=== PATIENT | female | born 1950 | race Caucasian/White ===

== ENCOUNTER 2021-04-12 04:51 | Day surgery (SDC) | payer MEDICARE ==
[~2021-04-12 04:51] MED LIST: ALBU90OI6 INH; ALBU90OI61; Crutch1 EACH MISC; DULO60 PO; GLIP5 PO; HYDACE5 PO; HYDCHL25 PO; LEVSOD100 PO; LEVSOD50; PARO20; PRAV20 PO; PROP10 PO; Percocet 5-3251 EACH PO; Prednisone20 MG PO; RXPROM25 PO; TOPI25; TRIA80TC TOP; WARF2 PO; WARF2.5; WARF3 PO; WARF5; WARF5 PO; [UNRECOGNIZED DRUG - REMARK]
[2021-04-12] MEDS ORDERED: WARF1 PO (18:36)
== END 2021-04-12 07:34 | disposition home or self-care (01) ==
LOC: ORSCSDS 04:51
DX: S82.62XA Displaced fracture of lateral malleolus of left fibula, initial encounter for closed fracture (principal); S82.52XA Displaced fracture of medial malleolus of left tibia, initial encounter for closed fracture; Z53.9 Procedure and treatment not carried out, unspecified reason

== ENCOUNTER 2021-04-12 17:43 | Inpatient (IN) | payer MEDICARE ==
[~2021-04-12] VITALS: Ht 165.1 cm; Wt 75.0 kg
[2021-04-12] MEDS ORDERED: WARF1 PO (18:36)
[2021-04-12 19:56] LABS: Bun/Creatinine Ratio 19.9 (12.0-20.0); Calcium, Blood 9.4 mg/dL (8.5-10.1); Creatinine, Blood 1.41 mg/dL (0.40-1.00); Potassium, Blood 3.3 mmol/L (3.5-5.5)
--- NOTE | 2021-04-13 04:29 | NUR ---
SHIFT SUMMARY PT HAS RESTED WELL T/O SHIFT. PT LEFT ANKLE IN IMMOBILIZER BOOT. PT DENIES PAIN TO ANKLE. NPO SINCE MIDNIGHT. USING BEDPAN TO VOID. USES CALL LIGHT APPROPRIATELY.
[2021-04-13 05:13] LABS: BASOPHILS ABSOLUTE AUTO 0.04 K/mm3 (0.00-0.23); BASOPHILS PERCENT AUTO 1 % (0-2); EOSINOPHILS ABSOLUTE AUTO 0.21 K/mm3 (0.00-0.68); EOSINOPHILS PERCENT AUTO 3 % (0-6); Hematocrit 37.3 % (33.0-51.0); Hemoglobin 12.6 g/dL (11.5-16.0); IMMATURE GRAN ABSOLUTE AUTO 0.03 K/mm3 (0.00-0.10); IMMATURE GRAN PERCENT AUTO 0 % (0-1); LYMPHOCYTES ABSOLUTE AUTO 2.47 K/mm3 (0.84-5.20); LYMPHOCYTES PERCENT AUTO 30 % (21-46); MONOCYTES ABSOLUTE AUTO 0.75 K/mm3 (0.16-1.47); MONOCYTES PERCENT AUTO 9 % (4-13); Mean Corpuscular HGB 31.6 pg (26.0-34.0); Mean Corpuscular HGB Conc 33.8 g/dL (31.5-36.5); Mean Corpuscular Volume 94 fL (80-100); Mean Platelet Volume 9.7 fL (9.1-12.4); NEUTROPHILS ABSOLUTE AUTO 4.76 K/mm3 (1.96-9.15); NEUTROPHILS PERCENT AUTO 58 % (41-73); Platelet Count 324 K/mm3 (150-400); RDW Coefficient Variation 13.3 % (11.7-14.2); RDW Standard Deviation 45.9 fL (35.1-46.3); Red Blood Cell Count 3.99 M/mm3 (3.80-5.20); White Blood Cell Count 8.26 K/mm3 (4.00-11.30)
[2021-04-13 05:31] LABS: Bun/Creatinine Ratio 17.6 (12.0-20.0); Calcium, Blood 9.3 mg/dL (8.5-10.1); Creatinine, Blood 1.48 mg/dL (0.40-1.00); Potassium, Blood 2.7 mmol/L (3.5-5.5)
--- NOTE | 2021-04-13 16:15 | NUR ---
SUMMARY NO ACUTE CHANGES T/O SHIFT. PT DENYING PAIN TO LLE. ABLE TO REPOSITION IN BED INDEPENDENTLY. REC'D K RIDER PER ORDERS. COVERED CBGS PER ORDERS. ORDERS TO BE NPO AFTER MN TONIGHT IN PREP FOR SURGERY TOMORROW. CALL LIGHT IN REACH. REPORTED TO ROBERT Ventura RN.
--- NOTE | 2021-04-13 19:27 | NUR ---
SHIFT SUMMARY PLAN FOR SURGERY TOMORROW. VSS. REPORT GIVEN TO NOC RN. NO CHANGES TO REPORT SINCE CARE ASSUMED.
[2021-04-14 04:58] LABS: BASOPHILS ABSOLUTE AUTO 0.03 K/mm3 (0.00-0.23); BASOPHILS PERCENT AUTO 0 % (0-2); EOSINOPHILS PERCENT AUTO 4 % (0-6); Hematocrit 34.5 % (33.0-51.0); Hemoglobin 11.5 g/dL (11.5-16.0); IMMATURE GRAN ABSOLUTE AUTO 0.02 K/mm3 (0.00-0.10); IMMATURE GRAN PERCENT AUTO 0 % (0-1); LYMPHOCYTES ABSOLUTE AUTO 1.97 K/mm3 (0.84-5.20); LYMPHOCYTES PERCENT AUTO 23 % (21-46); MONOCYTES ABSOLUTE AUTO 0.78 K/mm3 (0.16-1.47); MONOCYTES PERCENT AUTO 9 % (4-13); Mean Corpuscular HGB 32.1 pg (26.0-34.0); Mean Corpuscular HGB Conc 33.3 g/dL (31.5-36.5); Mean Corpuscular Volume 96 fL (80-100); Mean Platelet Volume 9.5 fL (9.1-12.4); NEUTROPHILS PERCENT AUTO 64 % (41-73); Platelet Count 289 K/mm3 (150-400); RDW Coefficient Variation 13.4 % (11.7-14.2); RDW Standard Deviation 47.6 fL (35.1-46.3); Red Blood Cell Count 3.58 M/mm3 (3.80-5.20)
[2021-04-14 05:21] LABS: Bun/Creatinine Ratio 16.8 (12.0-20.0); Calcium, Blood 9.2 mg/dL (8.5-10.1); Creatinine, Blood 1.19 mg/dL (0.40-1.00); Potassium, Blood 3.4 mmol/L (3.5-5.5)
--- NOTE | 2021-04-14 06:51 | NUR ---
SHIFT SUMMARY S/P L ANKLE FX, A/O X4, VSS, TOLERATING PO BUT NPO SINCE MIDNIGHT DUE TO SCHEDULED SURGERY TODAY, REPORTS ONLY MINOR PAIN AND HAS NOT WANTED ANYTHING FOR PAIN COVERAGE. PT FOUND c BOOT REMOVED, SHE REPORTS THAT SHE REMOVED IT DUE TO HER FOOT HURTING AND IT FEELING BETTER. PT EDUCATED ON THE IMPORTANCE OF KEEPING IT ON AND THE DOCTOR WANTING HER TO KEEP IT ON UNTIL SURGERY. NO OTHER ACUTE EVENTS THIS SHIFT. CALL PHANI IN REACH, REPORT GIVEN TO DAY RN.
--- NOTE | 2021-04-14 08:20 | NUR ---
pt wakes to verbal stimuli reports pain 11/04 since the boot was removed pt has severe brusing to the l foot pt can move it and ppp strong stated before she removed the boot it was feeling like it was swelling 05/04
--- NOTE | 2021-04-14 13:20 | NUR ---
SPLINT PLACED WITH A COMPRESSION DEVICE INSIDE PT CAN EAT AND NPO AFTER MN WILL CHECK PT'S SWELLING TO SEE IF SHE CAN HAVE SURG TOMORROW
--- NOTE | 2021-04-14 17:45 | NUR ---
MEDS GIVEN SCHED PT VISITING WITH DAUGHTER PT STILL MILI PAS IN SPLINT
--- NOTE | 2021-04-15 04:21 | NUR ---
SHIFT SUMMARY: PT HAS BEEN PLEASANT AND COOPERATIVE THROUGHOUT NIGHT. VS WNL. PT DENIES PAIN THIS SHIFT. SPLINT+SCD IN PLACE TO LLE. CAP REFILL WNL. PT ABLE TO WIGGLE TOES. PT HAS BEEN NPO SINCE MIDNIGHT FOR PLANNED SURGERY TODAY. VACCINATION CARD PRESENT IN CHART.
--- NOTE | 2021-04-15 09:11 | NUR ---
0900 TO DAY SURGERY VIA CART
--- NOTE | 2021-04-15 10:06 | NUR ---
History, Chart, Medications and Allergies reviewed before start of procedure. Lungs clear T/O to Auscultation. Patient confirms NPO status and agrees with scheduled surgery. Pre-Op teaching done. Pt verbalizes understanding.
--- NOTE | 2021-04-15 12:33 | NUR ---
1225 RETURNED TO ROOM FROM PACU, PT DROWSY REPORTS BURNING PAIN TO LEFT ANKLE. ABLE TO WIGGLE BILAT TOES. CAPILLARY REFILL LESS THAN 3 SECONDS, TOES WARM AND PINK. PT DENIES ANY NUMBNESS OR TINGLING TO BLE
--- NOTE | 2021-04-15 14:52 | NUR ---
Patient is sitting up in bed and a bit groggy from her recent surgery. Patient explains what happened to cause the fracture and what was done to correct it. Patient tells me about her positive family support (especially from her spouse and granddaughter) and jainism support (patient attends an [employer] j[employer] that has been praying for her). I provide prayer for patient and her resume resting. Patient voices appreciation for the prayer. I will continue to remain available to patient and family.
--- NOTE | 2021-04-15 18:19 | NUR ---
SUMMARY PT REPORTS PAIN IS ADEQUATELY CONTROLLED WITH PO MEDS. PT TELLS ME NEW DIAGNOSIS OF DIABETES AT THIS ADMIT BUT STATES SHE HAS PCP TO FOLLOW UP WITH. SPLINT IN PLACE TO LLE, PT DENIES NUMBNESS OR TINGLING. BILAT TOES PINK AND WARM WITH CAPILLARY REFILL OF LESS THAN 3 SECONDS. MILI PO FOOD AND FLUIDS WITHOUT NAUSEA. ICE IN PLACE TO LLE.
[2021-04-16 04:19] LABS: BASOPHILS ABSOLUTE AUTO 0.02 K/mm3 (0.00-0.23); BASOPHILS PERCENT AUTO 0 % (0-2); EOSINOPHILS ABSOLUTE AUTO 0.01 K/mm3 (0.00-0.68); EOSINOPHILS PERCENT AUTO 0 % (0-6); Hematocrit 32.9 % (33.0-51.0); IMMATURE GRAN ABSOLUTE AUTO 0.05 K/mm3 (0.00-0.10); IMMATURE GRAN PERCENT AUTO 0 % (0-1); LYMPHOCYTES ABSOLUTE AUTO 1.25 K/mm3 (0.84-5.20); LYMPHOCYTES PERCENT AUTO 11 % (21-46); MONOCYTES ABSOLUTE AUTO 1.08 K/mm3 (0.16-1.47); MONOCYTES PERCENT AUTO 9 % (4-13); Mean Corpuscular HGB 32.3 pg (26.0-34.0); Mean Corpuscular HGB Conc 33.4 g/dL (31.5-36.5); Mean Corpuscular Volume 97 fL (80-100); Mean Platelet Volume 9.3 fL (9.1-12.4); NEUTROPHILS ABSOLUTE AUTO 9.49 K/mm3 (1.96-9.15); NEUTROPHILS PERCENT AUTO 80 % (41-73); Platelet Count 271 K/mm3 (150-400); RDW Coefficient Variation 13.5 % (11.7-14.2); RDW Standard Deviation 47.9 fL (35.1-46.3); Red Blood Cell Count 3.41 M/mm3 (3.80-5.20)
[2021-04-16 04:37] LABS: Bun/Creatinine Ratio 20.5 (12.0-20.0); Calcium, Blood 8.8 mg/dL (8.5-10.1); Creatinine, Blood 1.32 mg/dL (0.40-1.00); Potassium, Blood 4.3 mmol/L (3.5-5.5)
--- NOTE | 2021-04-16 05:04 | NUR ---
SHIFT SUMMARY POD1 FOR LEFT ANKLE ORIF WITH DR. OREILLY. VSS. CBG WAS 388 AT HS. MEDICATED WITH 6 UNITS OF HUMALOG AND 20 UNITS OF SEMGLEE LAST NIGHT. PT REPORTS PAIN ON LEFT ANKLE. PAIN MANAGED WITH TYLENOL AND 5/325 PERCOCET 2 TAB. PT REFUSED TO TAKE HER ELIQUIS LAST NIGHT STATING THAT SHE GETS ITCHY AND FELT DIZZY SINCE SHE STARTED TAKING THIS MED. PT WORKED WITH PT YESTERDAY AND CAN STAND AND PIVOT TO CHAIR. PT USED BSC. VOIDING AFTER SURGERY. TOLERATING PO INTAKE, DENIES NAUSEA AND VOMITING. LLE HAS A SPLINT AND ZAHEER WRAP, APPEARS TO BE CDI. PT DENIES NUMBNESS AND TINGLING, ABLE TO WIGGLE TOES. CAP REFILL WNL. CALL LIGHT WITHIN REACH. PLAN TO WORK WITH THERAPY TODAY. WILL PROVIDE REPORT TO ONCOMING NURSE.
[2021-04-16] MEDS ORDERED: BASAGLAR K100 UNIT/6 SC (10:28)
[2021-04-16] MEDS ORDERED: HUMULIN R100 UNIT/1 SC (10:32)
[2021-04-16] MEDS ORDERED: POTA10T PO (10:32)
[2021-04-16] MEDS ORDERED: SENN187 PO (10:33)
--- NOTE | 2021-04-16 14:05 | NUR ---
1315 DISCHARGE INSTRUCTIONS REVIEWED WITH PATIENT AND HER AND GRANDDAUGHTER. PT AND FAMILY ARE IN AGREEMENT WITH PLAN TO DISCAHRGE WITH HOME HEALTH SERVICES. PT STATES SHE HAS GIVEN INSULIN TO BOTH OF HER PARENTS AND FEELS COMFORTABLE USING SLIDING SCALE AND GIVING HERSELF HOME INSULIN. PT REPORTS PAIN IS WELL CONTROLLED AND DENIES NEED FOR PAIN MEDICATION PRIOR TO DISCHARGE. MILI PO FOOD AND FLUID, VOIDING CLEAR YELLOW URINE. DME EQUIPMENT IS TO BE DELIVERED TO PATIENTS HOME THIS AFTERNOON. PATIENT IS ABLE TO STAND PIVOT TO COMMODE. GAIT BELT SENT HOME WITH PATIENT. DISCHARGED TO HOME WITH FAMILY
== END 2021-04-16 14:15 | disposition home health service (06) | DRG 494 ==
LOC: SURS 17:43
PROVIDERS: Internal Medicine; Orthopaedic Surgery; ADMIT Internal Medicine
PROC: 0QSH04Z Reposition Left Tibia with Internal Fixation Device, Open Approach (ICD-10-PCS; 2021-04-15)
PROC: 0QSHXZZ Reposition Left Tibia, External Approach (ICD-10-PCS; 2021-04-15)
PROC: 0QSK04Z Reposition Left Fibula with Internal Fixation Device, Open Approach (ICD-10-PCS; principal; 2021-04-15 09:30)
DX: S82.852A Displaced trimalleolar fracture of left lower leg, initial encounter for closed fracture (principal); E87.6 Hypokalemia; I12.9 Hypertensive chronic kidney disease with stage 1 through stage 4 chronic kidney disease, or unspecified chronic kidney disease; N18.30 Chronic kidney disease, stage 3 unspecified; E11.22 Type 2 diabetes mellitus with diabetic chronic kidney disease; J44.9 Chronic obstructive pulmonary disease, unspecified; L40.9 Psoriasis, unspecified; E03.9 Hypothyroidism, unspecified; M19.90 Unspecified osteoarthritis, unspecified site; G47.33 Obstructive sleep apnea (adult) (pediatric); F32.9 Major depressive disorder, single episode, unspecified; J45.909 Unspecified asthma, uncomplicated; M79.7 Fibromyalgia; Z86.718 Personal history of other venous thrombosis and embolism; Z90.710 Acquired absence of both cervix and uterus; Z98.890 Other specified postprocedural states; W18.30XA Fall on same level, unspecified, initial encounter; Z79.899 Other long term (current) drug therapy; Z88.5 Allergy status to narcotic agent; E78.5 Hyperlipidemia, unspecified
CPT/HCPCS: 36415; 80048; 82947; 84132; 85025; 94760; 96372; 97110; 97162; 97166; 97530; 97535; A9270; C1713; C1769; G0378; J0360; J0690; J1100; J1644; J1815; J2250; J2370; J2405; J2704; J3010; J3480; J7040; J7120